=== PATIENT | female | born 1960 ===

== ENCOUNTER 2022-11-26 13:06 | Inpatient (IN) | payer BC ==
[2022-11-26 14:08] LABS: #Eosinphils 0.1 thou/uL (0.0-0.7); #Monocytes 0.4 thou/uL (0.11-0.59); %Basophils 0.5 % (0.0-1.0); %Eosinophils 2.5 % (0.0-10.0); %Lymphocytes 18.2 % (21.0-51.0); %Monocytes 8.5 % (0.0-10.0); %Neutrophils 70.1 % (42.0-75.0); Hematocrit 36.8 % (36.0-47.0); Hemoglobin 12.6 g/dL (12.0-16.0); Mean Corpuscular HGB CONC 34.2 g/dL (32.0-36.0); Mean Corpuscular Hemoglobin 30.2 pg (27.0-31.0); Mean Corpuscular Volume 88.2 fl (78.0-98.0); Mean Platelet Volume 9.3 fL (7.4-10.4); Platelet Count 141 10x3/uL (130-400); RBC Distribution Width 13.4 % (11.5-14.5); Red Blood Cell (RBC) Count 4.17 mill/uL (4.20-5.40); White Blood Cell (WBC) Count 4.3 10x3/uL (4.8-10.8)
[2022-11-26 14:36] LABS: ALT (SGPT) 1581 U/L (8-55); AST (SGOT) 1664 U/L (5-34); Alkaline Phosphatase 242 U/L (40-110); Anion Gap 12 mmol/L (10-20); BUN (Urea Nitrogen) 12 mg/dL (9.8-20.1); Bilirubin, Total 2.8 mg/dL (0.2-1.2); Calc. Creatinine Clearance 0 mL/min (70-130); Calcium 9.4 mg/dL (7.8-10.44); Carbon Dioxide 25 mmol/L (23-31); Chloride 106 mmol/L (98-107); Estimated GFR 89; Globulin 2.9 g/dL (2.4-3.5); Glucose 91 mg/dL (80-115); Lipase 25 U/L (8-78); Potassium 4.4 mmol/L (3.5-5.1); Protein, Total 6.9 g/dL (5.8-8.1); Sodium 139 mmol/L (136-145)
[2022-11-26 14:38] LABS: Troponin I Less than 0.010 ng/mL (< 0.028)
[2022-11-26] MEDS ORDERED: Acetaminophen 500 MG TAB ONE (14:54)
[2022-11-26] MEDS ORDERED: hydrOXYzine 25 MG TAB ONE (14:55)
[2022-11-26 16:06] LABS: Bacteria/HPF None Seen HPF (None Seen); Bilirubin 1+ (Negative); Blood, Urine Trace (Negative); CAUTI Indications for Culture Pelvic or flank pain; Clarity Turbid (Clear); Glucose, Urine (Dipstick) Normal (Negative); Ketone, Urine 20 mg/dL (Negative); Leukocyte 500 Leu/uL (Negative); Nitrite 2+ (Negative); Protein, Urine (Dipstick) 70 mg/dL (Neg-Trace); Specific Gravity, Urine 1.029 (1.002-1.036); Squamous Epithelial None Seen HPF (0-3); WBC/HPF Greater than 50 HPF (0-3)
[2022-11-26 16:13] LABS: Urine Culture Reflex Yes Yes
[2022-11-26] MEDS: Dextrose 5 %-0.45 % NaCl 1,000 ML IV SCH (18:01)
[2022-11-26 18:08] VITALS: BMI 26.2
[2022-11-26] MEDS: Morphine 2 MG/ML VIAL SLOW IVP PRN (20:09)
[2022-11-26] MEDS: Ondansetron PF 4 MG/2 ML Vial IVP PRN (20:09)
[2022-11-27 04:49] LABS: #Eosinphils 0.2 thou/uL (0.0-0.7); #Monocytes 0.4 thou/uL (0.11-0.59); #Neutrophils 1.9 thou/uL (1.40-6.50); %Basophils 0.6 % (0.0-1.0); %Eosinophils 6.3 % (0.0-10.0); %Lymphocytes 21.8 % (21.0-51.0); Hematocrit 33.9 % (36.0-47.0); Hemoglobin 11.6 g/dL (12.0-16.0); Mean Corpuscular HGB CONC 34.2 g/dL (32.0-36.0); Mean Corpuscular Hemoglobin 29.9 pg (27.0-31.0); Mean Corpuscular Volume 87.4 fl (78.0-98.0); Mean Platelet Volume 10.1 fL (7.4-10.4); Platelet Count 127 10x3/uL (130-400); RBC Distribution Width 13.6 % (11.5-14.5); Red Blood Cell (RBC) Count 3.88 mill/uL (4.20-5.40); White Blood Cell (WBC) Count 3.2 10x3/uL (4.8-10.8)
[2022-11-27 04:55] LABS: ALT (SGPT) 1547 U/L (8-55); AST (SGOT) 1648 U/L (5-34); Albumin 3.6 g/dL (3.4-4.8); Alkaline Phosphatase 223 U/L (40-110); Anion Gap 11 mmol/L (10-20); BUN (Urea Nitrogen) 9 mg/dL (9.8-20.1); Bilirubin, Total 2.2 mg/dL (0.2-1.2); CK (CPK) 42 U/L (29-168); Calc. Creatinine Clearance 85 mL/min (70-130); Calcium 8.7 mg/dL (7.8-10.44); Carbon Dioxide 26 mmol/L (23-31); Chloride 107 mmol/L (98-107); Complement-C4 23.8 mg/dL (15-57); Estimated GFR 94; Globulin 2.8 g/dL (2.4-3.5); Glucose 108 mg/dL (80-115); Potassium 3.9 mmol/L (3.5-5.1); Protein, Total 6.4 g/dL (5.8-8.1); Sodium 140 mmol/L (136-145)
[2022-11-27] MEDS: CEFAZOLIN 1 GM in Sodium Chloride 0.9% 100 ML IVPB SCH ×2 (10:05→18:22)
[2022-11-27] MEDS: Dextrose 5 %-0.45 % NaCl 1,000 ML IV SCH ×2 (10:05→22:44)
[2022-11-27] MEDS ORDERED: Polyethylene Glycol 3350 17 GM Packet PO SCH (11:45)
[2022-11-27 12:04] LABS: Syphilis Antibody Nonreactive (Nonreactive)
[2022-11-27] MEDS: Ondansetron PF 4 MG/2 ML Vial IVP PRN ×2 (13:48→21:17)
[2022-11-27] MEDS ORDERED: predniSONE 20 MG TAB PO SCH (17:30)
[2022-11-27] MEDS ORDERED: Promethazine HCl 12.5 MG in Sodium Chloride 0.9% 50 ML IVPB PRN (17:36)
[2022-11-27] MEDS ORDERED: Promethazine 25 MG TAB PO PRN (18:07)
[2022-11-27] MEDS: Morphine 2 MG/ML VIAL SLOW IVP PRN ×2 (18:21→22:44)
[2022-11-28] MEDS: CEFAZOLIN 1 GM in Sodium Chloride 0.9% 100 ML IVPB SCH ×3 (01:10→17:54)
[2022-11-28 03:42] LABS: #Monocytes 0.1 thou/uL (0.11-0.59); #Neutrophils 2.6 thou/uL (1.40-6.50); %Basophils 0.3 % (0.0-1.0); %Eosinophils 0.6 % (0.0-10.0); %Monocytes 4.1 % (0.0-10.0); %Neutrophils 75.1 % (42.0-75.0); Hematocrit 35.3 % (36.0-47.0); Hemoglobin 11.9 g/dL (12.0-16.0); Mean Corpuscular HGB CONC 33.7 g/dL (32.0-36.0); Mean Corpuscular Hemoglobin 29.6 pg (27.0-31.0); Mean Corpuscular Volume 87.8 fl (78.0-98.0); Mean Platelet Volume 9.7 fL (7.4-10.4); Platelet Count 149 10x3/uL (130-400); RBC Distribution Width 13.8 % (11.5-14.5); Red Blood Cell (RBC) Count 4.02 mill/uL (4.20-5.40); White Blood Cell (WBC) Count 3.4 10x3/uL (4.8-10.8)
[2022-11-28 03:59] LABS: INR-International Normal Ratio 1.1; Prothrombin Time 15.1 sec (12.0-14.7)
[2022-11-28 04:11] LABS: ALT (SGPT) 1655 U/L (8-55); AST (SGOT) 1786 U/L (5-34); Albumin 3.5 g/dL (3.4-4.8); Alkaline Phosphatase 253 U/L (40-110); Anion Gap 13 mmol/L (10-20); BUN (Urea Nitrogen) 6 mg/dL (9.8-20.1); Bilirubin, Total 2.8 mg/dL (0.2-1.2); Calc. Creatinine Clearance 85 mL/min (70-130); Calcium 8.5 mg/dL (7.8-10.44); Carbon Dioxide 24 mmol/L (23-31); Chloride 107 mmol/L (98-107); Estimated GFR 94; Globulin 3.1 g/dL (2.4-3.5); Glucose 138 mg/dL (80-115); Potassium 4.5 mmol/L (3.5-5.1); Protein, Total 6.6 g/dL (5.8-8.1); Sodium 139 mmol/L (136-145)
[2022-11-28] MEDS ORDERED: predniSONE 20 MG TAB PO SCH (08:00)
[2022-11-28] MEDS: Polyethylene Glycol 3350 17 GM Packet PO SCH (10:54)
[2022-11-28] MEDS ORDERED: methylPREDNISolone Sod Succ 40 MG VIAL IVP SCH (17:00)
[2022-11-28] MEDS: Dextrose 5 %-0.45 % NaCl 1,000 ML IV SCH (17:54)
[2022-11-29] MEDS: Dextrose 5 %-0.45 % NaCl 1,000 ML IV SCH ×3 (00:30→14:32)
[2022-11-29] MEDS: CEFAZOLIN 1 GM in Sodium Chloride 0.9% 100 ML IVPB SCH ×2 (00:30→10:01)
[2022-11-29] MEDS: Morphine 2 MG/ML VIAL SLOW IVP PRN ×2 (02:10→20:38)
[2022-11-29 07:36] LABS: INR-International Normal Ratio 1.1; Prothrombin Time 14.8 sec (12.0-14.7)
[2022-11-29 07:51] LABS: ALT (SGPT) 1221 U/L (8-55); AST (SGOT) 1069 U/L (5-34); Albumin 3.4 g/dL (3.4-4.8); Alkaline Phosphatase 251 U/L (40-110); Anion Gap 11 mmol/L (10-20); BUN (Urea Nitrogen) 11 mg/dL (9.8-20.1); Bilirubin, Total 1.3 mg/dL (0.2-1.2); Calc. Creatinine Clearance 95 mL/min (70-130); Calcium 8.7 mg/dL (7.8-10.44); Carbon Dioxide 23 mmol/L (23-31); Chloride 110 mmol/L (98-107); Estimated GFR 99; Globulin 3.2 g/dL (2.4-3.5); Glucose 98 mg/dL (80-115); Potassium 3.9 mmol/L (3.5-5.1); Protein, Total 6.6 g/dL (5.8-8.1); Sodium 140 mmol/L (136-145)
[2022-11-29] MEDS: Polyethylene Glycol 3350 17 GM Packet PO SCH (10:01)
[2022-11-29] MEDS: Pantoprazole 40 MG VIAL IVP SCH ×2 (10:01→20:47)
[2022-11-29] MEDS: methylPREDNISolone Sod Succ 40 MG VIAL IVP SCH ×2 (10:01→20:18)
[2022-11-29] MEDS ORDERED: Lidocaine 1% PF 5 ML VIAL ONE (10:42)
[2022-11-29] MEDS ORDERED: Sodium Bicarbonate 2.5 MEQ/5 ML VIAL ONE (10:42)
[2022-11-29] MEDS ORDERED: fentaNYL 50 mcg/mL 1 mL Vial ONE (11:07)
[2022-11-29] MEDS ORDERED: Midazolam HCl 2 mg/2 ml Vial ONE (11:07)
[2022-11-29] MEDS: Ciprofloxacin 500 MG TAB PO SCH (20:17)
[2022-11-30] MEDS: Dextrose 5 %-0.45 % NaCl 1,000 ML IV SCH (01:00)
[2022-11-30] MEDS: Ciprofloxacin 500 MG TAB PO SCH (06:06)
[2022-11-30 06:40] LABS: ALT (SGPT) 930 U/L (8-55); AST (SGOT) 668 U/L (5-34); Albumin 3.3 g/dL (3.4-4.8); Alkaline Phosphatase 238 U/L (40-110); Bilirubin, Direct 0.7 mg/dL (0.1-0.3); Protein, Total 6.2 g/dL (5.8-8.1)
[2022-11-30 07:02] LABS: INR-International Normal Ratio 1.2; Prothrombin Time 15.2 sec (12.0-14.7)
[2022-11-30] MEDS: Pantoprazole 40 MG VIAL IVP SCH (10:06)
[2022-11-30] MEDS: Polyethylene Glycol 3350 17 GM Packet PO SCH (10:06)
[2022-11-30] MEDS: methylPREDNISolone Sod Succ 40 MG VIAL IVP SCH (10:06)
[2022-11-30 12:07] VITALS: BP 147/69; TEMP 97.8
[2022-11-30 12:55] LABS: EliA Celiac New Method **** NEW METHOD ****; t-Transglutaminase (tTG) IgA 1.7 EliAU/mL (<7 Negative); t-Transglutaminase (tTG) IgG 1.4 EliAU/mL (<7 Negative)
[2022-12-01 04:12] LABS: QuantiFERON-TB Gold Plus Negative (Negative)
== END 2022-11-30 14:11 | disposition home or self-care (01) | DRG 442 ==
LOC: ERS 13:06 → T4-B 15:06
PROVIDERS: ADMIT Internal Medicine; ATTEND Emergency Medicine
PROC: 0FB13ZX Excision of Right Lobe Liver, Percutaneous Approach, Diagnostic (ICD-10-PCS; principal; 2022-11-29)
DX: K75.4 Autoimmune hepatitis (principal); N39.0 Urinary tract infection, site not specified; E78.00 Pure hypercholesterolemia, unspecified; G43.909 Migraine, unspecified, not intractable, without status migrainosus; Z79.899 Other long term (current) drug therapy; Z90.710 Acquired absence of both cervix and uterus
CPT/HCPCS: 36415; 47000; 74183; 76705; 76942; 80053; 80076; 81001; 82550; 83516; 83690; 84484; 85025; 85610; 86160; 86480; 86780; 87077; 87086; 87186; 88307; 88313; C9113; J0690; J2250; J2272; J2405; J2920; J3010; J3490; J7042; J7512; Q0169